=== PATIENT | male | born 1960 ===

== ENCOUNTER 2016-04-06 11:08 | Emergency (ER) | payer OTHER ==
--- NOTE | 2016-04-06 11:31 | UC ---
Lower Extremity/Ankle HPI - HPI Summary HPI Summary: 3 days ado caught right 4/5 toe on a piece of [employer] work equipment , increase bruising, unable to get his work shoes on - History of Current Complaint Chief Complaint: UCLowerExtremity Stated Complaint: TOE INJURY-RT FOOT Time Seen by Provider: 04/06/16 11:26 Hx Obtained From: Patient Onset/Duration: Sudden Onset, Lasting Days - 3, Still Present, Worse Since - daily Severity Initially: Mild Severity Currently: Moderate Pain Intensity: 5 Pain Scale Used: 0-10 Numeric Aggravating Factor(s): Standing Alleviating Factor(s): Rest, Elevation Able to Bear Weight: Yes - with pain - Allergies/Home Medications Allergies/Adverse Reactions: Allergies Allergy/AdvReac Type Severity Reaction Status Date / Time No Known Allergies Allergy Verified 04/06/16 11:22 Home Medications: Home Medications NK [No Home Medications Reported] 04/06/16 [History Confirmed 04/06/16] PMH/Surg Hx/FS Hx/Imm Hx Previously Healthy: Yes Endocrine History Of: Denies: Diabetes, Thyroid Disease Cardiovascular History Of: Denies: Cardiac Disorders, Hypertension Respiratory History Of: Denies: COPD, Asthma GI/ History Of: Denies: Ulcer - Surgical History Surgical History: Yes Surgery Procedure, Year, and Place: Hernia repair - Family History Known Family History: Positive: None Family History: denies cardio vascular issues in family lineage - Social History Occupation: Employed Full-time Lives: With Family Alcohol Use: Occasionally Alcohol Amount: weekend beers Substance Use Type: None Smoking Status (MU): Never Smoked Tobacco Review of Systems Constitutional: Negative Skin: Bruising - lateral right foot Eyes: Negative ENT: Negative Respiratory: Negative Cardiovascular: Negative Gastrointestinal: Negative Genitourinary: Negative Motor: Decreased ROM - 4/5 toes right foot Neurovascular: Negative Musculoskeletal: Arthralgia - lateral right foot Neurological: Negative Psychological: Negative All Other Systems Reviewed And Are Negative: Yes Physical Exam Triage Information Reviewed: Yes Appearance: Well-Appearing, No Pain Distress, Well-Nourished Vital Signs: Initial Vital Signs Temp 98 F 04/06/16 11:13 Pulse 72 04/06/16 11:13 Resp 16 04/06/16 11:13 BP 146/90 04/06/16 11:13 Pulse Ox 97 04/06/16 11:13 Vital Signs Reviewed: Yes Eye Exam: Normal Eyes: Positive: Conjunctiva Clear ENT Exam: Normal ENT: Positive: Normal ENT inspection, Hearing grossly normal. Negative: Nasal congestion, Nasal drainage, Trismus, Muffled/hoarse voice Dental Exam: Normal Neck exam: Normal Neck: Positive: Supple, Nontender Respiratory Exam: Normal Respiratory: Positive: Chest non-tender, No respiratory distress, No accessory muscle use Cardiovascular Exam: Normal Cardiovascular: Positive: RRR, Pulses Normal, Brisk Capillary Refill Musculoskeletal Exam: Other Musculoskeletal: Positive: Strength Limited @ - right 4/5 toes, ROM Limited @ - right 4/5 toes, Edema @ - right lateral foot Neurological Exam: Normal Neurological: Positive: Alert, Muscle Tone Normal Psychological Exam: Normal Skin Exam: Normal Diagnostics - Radiology No standard instances Xray Interpretation: Positive (See Comments) - 4&5 right toe fracture Radiology Interpretation Completed By: ED Physician, Radiologist Lower Extremity Course/Dx - Course Course Of Treatment: rice, nwb, crutches follow with ortho, post up shoe - Differential Dx/Diagnosis Differential Diagnosis/HQI/PQRI: Contusion, Fracture (Closed), Sprain, Strain Provider Diagnoses: fracture 4/5 right toe Discharge - Discharge Plan Condition: Stable Disposition: HOME Patient Education Materials: Ibuprofen (By mouth), Crutch Instructions (ED), Toe Fracture (ED), RICE Therapy (ED) Forms: *Work Release Referrals: Derrick Mcmahon MD [Medical Doctor] - 3 Days Additional Instructions: Non-weight bearing until cleared by orthopedic MD
--- NOTE | 2016-04-06 12:11 | RAD ---
INDICATION: Right foot injury COMPARISON: None TECHNIQUE: AP, lateral, and oblique views were obtained. FINDINGS: There are essentially nondisplaced, comminuted, intra-articular fractures involving the bases of the proximal phalanges of the fourth and fifth toes. There are no other fractures. There is soft tissue swelling about the fracture sites. IMPRESSION: FRACTURES OF THE FOURTH AND FIFTH TOES DESCRIBED
== END 2016-04-06 12:59 | disposition home or self-care (01) ==
LOC: UCEAST 11:08
DX: S92.514A Nondisplaced fracture of proximal phalanx of right lesser toe(s), initial encounter for closed fracture (principal); W23.0XXA Caught, crushed, jammed, or pinched between moving objects, initial encounter; Y93.9 Activity, unspecified; Y92.9 Unspecified place or not applicable
CPT/HCPCS: 99203; G0463